=== PATIENT | female | born 1990 | race Caucasian/White ===

== ENCOUNTER 2019-05-19 19:19 | Emergency (ER) | payer SELFPAY ==
[~2019-05-19] VITALS: Ht 174 cm; Wt 120.6 kg
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
[2019-05-19] MEDS ORDERED: LORazepam 1MG TABLET PO ONE (20:30)
[2019-05-19] MEDS ORDERED: SODIUM CHLORIDE 0.9% 1,000ML IVBOLUS ONE (20:30)
[2019-05-19] MEDS ORDERED: SODIUM CHLORIDE FLUSH 10ML SYR IVF ONE (20:30)
[2019-05-19] MEDS ORDERED: LORazepam 1MG TABLET ONE (20:36)
--- NOTE | 2019-05-19 21:06 | NUR ---
CT PENDING BETA.
[2019-05-19 21:09] LABS: BASOPHILS # (AUTO) 0.02 x10^3/uL (0-0.1); BASOPHILS % (AUTO) 0 % (0-1); EOSINOPHILS # (AUTO) 0.24 x10^3/uL (0-0.4); EOSINOPHILS % (AUTO) 3 % (1-7); LYMPHOCYTES # (AUTO) 1.51 x10^3/uL (1-3.4); LYMPHOCYTES % (AUTO) 16 % (22-44); MD NO; MEAN CORPUSCULAR HEMOGLOBIN 29.7 pg (27.0-34.8); MEAN CORPUSCULAR HGB CONC 33.3 g/dL (32.4-35.8); MEAN CORPUSCULAR VOLUME 89.1 fL (80-100); MEAN PLATELET VOLUME 8.6 fL (7.4-10.4); MONOCYTES # (AUTO) 0.63 x10^3/uL (0.2-0.8); MONOCYTES % (AUTO) 7 % (2-9); NEUTROPHILS # (AUTO) 6.86 x10^3/uL (1.8-6.8); NEUTROPHILS % (AUTO) 74 % (42-75); PLATELET COUNT 368 x10^3/uL (130-400); RED BLOOD COUNT 5.19 x10^6/uL (3.82-5.3); RED CELL DISTRIBUTION WIDTH 13.4 % (9.6-15.2)
[2019-05-19 21:18] LABS: ALANINE AMINOTRANSFERASE 47 U/L (12-78); ALBUMIN 3.8 g/dL (3.4-5.0); ANION GAP 10 mmol/L (5-15); CALCIUM 9.8 mg/dL (8.5-10.1); CHLORIDE 106 mmol/L (98-107); CREATININE 1.14 mg/dL (0.55-1.02)
[2019-05-19 21:23] LABS: ALKALINE PHOSPHATASE 82 U/L (45-117); BILIRUBIN,TOTAL 0.6 mg/dL (0.2-1.0); TOTAL PROTEIN 8.6 g/dL (6.4-8.2)
--- NOTE | 2019-05-19 21:24 | NUR ---
PT MEDICATED PER EMAR. IVF SOCO. PT PROVED BLANKET, PILLOW. AWAING DIAGNOSTIC RESULTS.
[2019-05-19 21:26] LABS: AMPHETAMINE SCREEN, URINE Negative (Negative); BARBITURATE SCREEN, URINE Negative (Negative); BENZODIAZEPINE SCREEN, URINE Negative (Negative); CANNABINOID SCREEN, URINE Negative (Negative); COCAINE SCREEN, URINE Positive (Negative); METHADONE SCREEN, URINE Negative (Negative); OPIATE SCREEN, URINE Negative (Negative)
--- NOTE | 2019-05-19 21:53 | NUR ---
C COLLAR PLACED PER MD HARTMAN REQUEST
--- NOTE | 2019-05-19 22:03 | NUR ---
ALL PT DIAGNOSTICS ARE RESULTED AND PT PLACED UP FOR RECHECK BY DELILAH KERNS
[2019-05-19] MEDS ORDERED: OXYcodone/APAP 10/325MG TABLET ONE (22:34)
--- NOTE | 2019-05-19 22:38 | NUR ---
PT TO HAVE MRI. PT MEDICATED FOR PAIN PER EMAR
[2019-05-19] MEDS ORDERED: OXYcodone/APAP 10/325MG TABLET PO ONE (23:00)
--- NOTE | 2019-05-19 23:40 | NUR ---
pt to ct
--- NOTE | 2019-05-20 00:07 | NUR ---
pt resting on [place]. no acute distress noted.
--- NOTE | 2019-05-20 00:40 | NUR ---
PT SCANS COMPLETE. PT PLACED FOR RECHECK BY DELILAH KERNS
[2019-05-20 00:55] VITALS: BP 138/94
== END 2019-05-20 02:10 | disposition home or self-care (01) ==
LOC: ED 23:59
DX: S16.1XXA Strain of muscle, fascia and tendon at neck level, initial encounter (principal); G89.11 Acute pain due to trauma; M51.26 Other intervertebral disc displacement, lumbar region; X58.XXXA Exposure to other specified factors, initial encounter; Y93.89 Activity, other specified; Y92.89 Other specified places as the place of occurrence of the external cause; Y99.8 Other external cause status
CPT/HCPCS: 36415; 70450; 72125; 72128; 72131; 72141; 73564; 80053; 80307; 84703; 85025; 93005; 99284; J7030